=== PATIENT | female | born 1990 | race African-American/Black ===

== ENCOUNTER 2022-06-25 21:55 | Emergency (ER) | payer OTHER ==
[~2022-06-25] VITALS: Ht 154.9 cm; Wt 59.0 kg
[2022-06-25 22:01] VITALS: BP 135/89
--- NOTE | 2022-06-25 23:49 | NUR ---
Called no show in lobby or outside.
--- NOTE | 2022-06-25 23:59 | NUR ---
PATIENT LEFT WITHOUT BEING SEEN BY DR. Torres. NO FURTHER CARE PROVIDED FOR PATIENT.
== END 2022-06-25 23:59 | disposition left against medical advice (07) ==
LOC: MED 21:55
DX: S01.511A Laceration without foreign body of lip, initial encounter (principal); Z53.21 Procedure and treatment not carried out due to patient leaving prior to being seen by health care provider; W18.39XA Other fall on same level, initial encounter; Y92.89 Other specified places as the place of occurrence of the external cause; Y93.89 Activity, other specified; Y99.8 Other external cause status